=== PATIENT | male | born 1980 | race Caucasian/White ===

== ENCOUNTER 2024-12-22 09:21 | Outpatient (REF) | payer OTHER, SELFPAY ==
[2024-12-22 14:48] LABS: Influenza A PCR POSITIVE (Negative); Influenza B PCR NEGATIVE (Negative); Resp Syncy Virus RNA Qual PCR NEGATIVE (Negative); SARS COV2 PCR INHOUSE NEGATIVE (Negative)
== END 2024-12-22 09:22 | disposition home or self-care (01) ==
LOC: HO.LNP 09:21
PROVIDERS: Visit Provider Nurse Practitioner Family
DX: R06.2 Wheezing (principal); R05.1 Acute cough; R42 Dizziness and giddiness; R55 Syncope and collapse; F10.90 Alcohol use, unspecified, uncomplicated; Z75.8 Other problems related to medical facilities and other health care; Z82.49 Family history of ischemic heart disease and other diseases of the circulatory system
CPT/HCPCS: 0241U; 93005

== ENCOUNTER 2024-12-22 09:21 | Outpatient (AMB) | payer OTHER, SELFPAY ==
--- NOTE | 2024-12-22 09:32 | AM.OFFWIN_ITS ---
Intake Vital Signs 12/22/24 09:33 Height 5 ft 8 in Weight 159 lb BMI 24.2 BP 134/86 Blood Pressure Location Lt brachial Position Sitting Respiration 14 Pulse 86 Pulse Source Pulse Oximeter Temp 98.3 F Temp Source Oral Pulse Oximetry (%) 98 Oxygen Delivery Method Room Air Intake Visit Reasons: est/ cough/chest pain/lightheaded Intake Note: Cough, chest pain, lightheaded. Sxs Started last Saturday. No covid or flu tests done. Patient Tobacco Use Status: Former Tobacco user [employer] Required: No Allergies No Known Allergies Allergy (Verified 12/22/24 10:06) Medication List - Last Reconciled 12/22/24 by WESLEY Duran No Known Home Meds Do you need a note to return to daycare/school/sports/work: Yes Return to daycare/school/sports/work/other note: work HPI HPI Comments History of Present Illness Details The patient is a 44-year-old male presenting with persistent cough and lightheadedness. Last week, he experienced an acute illness characterized by pronounced symptoms on Saturday, , and Saturday, with improvement noted by Saturday. Despite not feeling overtly unwell, he reports a residual cough and feelings of congestion in the chest, with associated lightheadedness. The lightheadedness occurred both during episodes of coughing and at rest. Additionally, the patient has a recent history of syncope, occurring last while visiting his parents in [place]. The event was brief with a rapid recovery and was not associated with head trauma. He did not seek medical attention following this event. He recognizes a family history of heart disease, which has prompted concern and his attempts to establish care with a primary care physician for cardiac evaluation. The patient admits to consuming Aleve last week to manage the symptoms but discontinued by Saturday. He denies regular medication usage, cigarette smoking, or diagnosed diabetes. + marijuana use He reports regular alcohol consumption at a rate of two beers daily, though he has abstained for the past week and noted a general decrease in consumption over the recent months. Examination of acute respiratory symptoms by family before sought medical advice was absent. Social History - Current unemployment status. - Does not have a [facility], relying on his mother for general health advice. - Regular alcohol consumption, although notably reduced over the past few months. - History of cannabis use, with cessatio n over the last week. Physical Exam General: Awake, alert. No apparent distress Eyes: Sclera and conjunctiva clear bilaterally Nose: Nares patent, turbinates within normal limits, no sinus tenderness with palpation bilaterally Ears: Tympanic membranes intact and clear bilaterally Throat: Moist mucosa membrane, pharynx within normal limits Cardiovascular: Regular rate and rhythm, EKG ordered for further evaluation Respiratory: Faint exp wheeze RLL otherwise clear and dim, no distress Mildly anxious, cooperative Results - Tests and Diagnostics: - Swab for Flu, COVID-19, and RSV: Pending - Electrocardiogram (EKG): WNL - Chest X-ray: Recommended but pending Discussion Notes I discussed the patient's symptoms, potential underlying infections, and the importance of ruling out more concerning causes for his syncope and lightheadedness given his family history of heart disease. I explained the need for a thorough primary care evaluation especially for a syncope workup and emphasized the necessity of appropriate referrals. An EKG and chest X-ray were recommended as immediate steps to evaluate his cardiopulmonary status, with COVID-19, flu, and RSV swabs performed to identify potential infectious causes. I advised about the potential risks of his lifestyle habits including alcohol and cannabis use in context to his symptoms and discussed the necessity of establishing a primary care provider. Plan Given the patient's current symptoms and relevant history, the primary focus is to exclude any acute infections through the pending swab results for flu, COVID- 19, and RSV. An EKG will help assess any immediate cardiac concerns, considering his past syncopal episode and family history of heart disease. WNL. A chest X- ray will be useful in identifying any longstanding respiratory condition that may be attributing to his continued cough and chest discomfort. Long-term, the establishment of a primary care provider is crucial for ongoing cardiovascular monitoring and managing risk factors related to his lifestyle choices. Ongoing abstinence from alcohol and cannabis is advised to rule out any contributory effects these may have on his present condition. The surveillance of symptoms and timely medical evaluations stand as proactive measures in this patient's he alth journey. Pt will be called later w results of viral swab and cxr. Strongly encouraged PCP f/u [place]. Patient was informed and verbally consented to the use of an ambient scribe for clinic note documentation during this visit. Total time spent caring for the patient today was 45 minutes. This includes time spent before the visit reviewing the chart, time spent during the visit, and time spent after the visit on documentation, reviewing laboratory results, diagnostic imaging, medications, performing a medically necessary evaluation, counseling on diagnoses, care coordination, ordering appropriate tests, ordering appropriate medications, review of tests performed by other providers, reporting test results with the patient, communication with other healthcare providers.. PFSH Social History Patient Tobacco Use Status: Former Tobacco user Physical Exam Vital Signs: Last Vital Signs Temp 98.3 F 12/22/24 09:33 Pulse 86 12/22/24 09:33 Resp 14 12/22/24 09:33 BP 134/86 12/22/24 09:33 Pulse Ox 98 12/22/24 09:33 Oxygen Delivery Method Room Air 12/22/24 09:33 BMI result Body Mass Index 24.2 Office Procedures EKG 62559-[id number], Complete Assessment & Plan Assessment & Plan (1) Wheezing: Code(s): R06.2 - Wheezing (2) Cough: Code(s): R05.9 - Cough, unspecified Qualifiers: Cough type: acute Qualified Code(s): R05.1 - Acute cough (3) Lightheadedness: Code(s): R42 - Dizziness and giddiness (4) Syncope: Code(s): R55 - Syncope and collapse Qualifiers: Syncope type: unspecified Qualified Code(s): R55 - Syncope and collapse (5) Alcohol use: Code(s): F10.90 - Alcohol use, unspecified, uncomplicated (6) Does not have primary care provider: Code(s): Z75.8 - Other problems related to medical facilities and other health care Plan . Orders: Orders SARS-CoV2/FLU/RSV Today R09.89 - Other specified symptoms and signs involving the circulatory and respiratory systems XR chest 2V Today R05.9 - Cough, unspecified, R06.2 - Wheezing Coding Level of Care Code Est Pt Level 5 (34264) Diagnoses Wheezing R06.2 Acute cough R05.1 Cough type: acute Lightheadedness R42 Syncope, unspecified syncope type R55 Syncope type: unspecified Alcohol use F10.90 Does not have primary care provider Z75.8 CPT Codes EKG - CPT: 53070-[id number], Complete ([id number])
[2024-12-22 09:33] VITALS: BP 134/86; PULSE 86; RESP 14; TEMP 36.8; O2SAT 98; BMI 24.2
== END 2024-12-22 10:42 | disposition home or self-care (01) ==
PROVIDERS: Visit Provider Nurse Practitioner Family
DX: R06.2 Wheezing (principal); R05.1 Acute cough; R42 Dizziness and giddiness; R55 Syncope and collapse; F10.90 Alcohol use, unspecified, uncomplicated; Z75.8 Other problems related to medical facilities and other health care